=== PATIENT | male | born 1990 | race Caucasian/White ===

== ENCOUNTER 2025-05-15 16:14 | Emergency (ER) | payer OTHER ==
[2025-05-15 16:24] VITALS: TEMP 97.9
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
[2025-05-15] MEDS: BACITRACIN OINT 1 EACH PACKET TOPICAL ONE (17:22)
[2025-05-15 17:59] VITALS: BP 138/85; PULSE 122; RESP 18
== END 2025-05-15 17:45 | disposition home or self-care (01) ==
LOC: EC 16:14
DX: S40.211A Abrasion of right shoulder, initial encounter (principal); V89.2XXA Person injured in unspecified motor-vehicle accident, traffic, initial encounter; W22.8XXA Striking against or struck by other objects, initial encounter
CPT/HCPCS: 99284